=== PATIENT | female | born 1980 | race Caucasian/White ===

== ENCOUNTER 2016-11-06 21:22 | Inpatient (IN) | payer MEDICAID, OTHER ==
[~2016-11-06] VITALS: Ht 157.5 cm; Wt 88.5 kg
[~2016-11-06 21:22] MED LIST: ALBU1AER INH; DICY1TAB26 PO; ZOFR4TAB3 SL
[2016-11-06 21:29] VITALS: BP 125/82; PULSE 101; RESP 18; TEMP 97.8; O2SAT 96
--- NOTE | 2016-11-06 21:47 | PD ---
HPI Chief Complaint: Dizziness Time Seen by Provider: 21:34 Travel History International Travel<30 days: No Contact w/Intl Traveler<30days: No Traveled to known affect area: No History of Present Illness HPI This 36-year-old female says she was driving Home from Daycare Today When She Had a Episode Where She Farley She Might Pass out. She Says Everything Went Blank for a Moment. She Did Not Actually Pass out. After That She Developed a Left-Sided Headache. She's Had Some Paresthesias in the Right Arm and Right Leg. She Feels a Bit Short of Breath Says She Feels like She Can't Take. She Does Have a History of Asthma and Seasonal Allergies She Has a History of Migraine Headaches. SHe Was on Topamax in the past but Is Not Taking It Now. She says that her mother had a stroke at the age of 50 PFSH Past Medical History Asthma: Yes Diminished Hearing: No Gastrointestinal Disorders: Yes (ULCER) ?: Not : 3 Para: 2 Ectopic : Yes Past Surgical History Gynecologic Surgery: Yes (LEEP) Oral Surgery: Yes (WISDOM TEETH) Social History Alcohol Use: Yes (SOCIALLY) Tobacco Use: Yes (08/02PP) Substance Use: No Allergies-Medications (Allergen,Severity, Reaction): Coded Allergies: Zithromax (Verified Allergy, Mild, hives, 11/06/16) Advil (Verified Allergy, Unknown, 11/06/16) Codeine (Verified Allergy, Unknown, 11/06/16) Uncoded Allergies: RED COATING ON ADVIL (Allergy, Severe, 09/25/10) Reported Meds & Prescriptions Reported Meds & Active Scripts Active Reported Proair Hfa 8.5 GM Inh (Albuterol Sulfate) 90 Mcg/Act Aer 2 Puff INH Q4-6H PRN 108 mcg/actuation Review of Systems General / Constitutional: No: Fever, Chills Eyes: No: Diploplia, Blurred Vision HENT: Positive: Headaches, No: Vertigo Cardiovascular: Positive: Chest Pain or Discomfort, No: Palpitations Respiratory: Positive: Cough, No: Shortness of Breath Gastrointestinal: No: Nausea, Vomiting Genitourinary: No: Urgency Musculoskeletal: No: Myalgias, Arthralgias Skin: No Rash, No Itching Neurologic: Positive: Weakness, Sensory Disturbance Hematologic/Lymphatic: No: Easy Bruising Physical Exam Narrative GENERAL: Well-developed female SKIN: Focused skin assessment warm/dry. HEAD: Atraumatic. Normocephalic. EYES: Pupils equal and round. No scleral icterus. No injection or drainage. ENT: No nasal bleeding or discharge. Mucous membranes pink and moist. NECK: Trachea midline. No JVD. CARDIOVASCULAR: Regular rate and rhythm. No murmur appreciated. RESPIRATORY: No accessory muscle use. Clear to auscultation. Breath sounds equal bilaterally. GASTROINTESTINAL: Abdomen soft, non-tender, nondistended. Hepatic and splenic margins not palpable. MUSCULOSKELETAL: No obvious deformities. No clubbing. No cyanosis. No edema. NEUROLOGICAL: Awake and alert. No obvious cranial nerve deficits. Motor grossly within normal limits. Normal speech. There is diminished sensation in an area of the right upper arm laterally and the right upper leg laterally PSYCHIATRIC: Appropriate mood and affect; insight and judgment normal. Data Data Last Documented VS Vital Signs Date Time Temp Pulse Resp B/P Pulse Ox O2 Delivery O2 Flow Rate FiO2 11/06/16 22:00 100 20 139/69 99 Room Air 11/06/16 21:29 97.8 Orders Electrocardiogram (11/06/16 21:42) Complete Blood Count With Diff (11/06/16 21:42) Basic Metabolic Panel (Bmp) (11/06/16 21:42) Chest, Pa & Lat (11/06/16 21:42) Ct Brain W/O Iv Contrast(Rout) (11/06/16 21:42) Aspirin (Aspirin) (11/06/16 22:15) Urinalysis - C+S If Indicated (11/06/16 22:25) Nih Stroke Scale - Nihss .On admission and discharge (11/06/16 22:58) Neuro Checks Q2HX12,Q4H (11/06/16 22:58) Ot Request For Service (11/06/16 22:58) Consult Pt Eval & Treat (11/06/16 22:58) Case Management Consult (11/06/16 ) Nursing Bedside Swallow Assess .ONCE (11/06/16 22:58) Scd Bilateral/Knee High JOY.QSHIFT (11/06/16 22:58) Diet Npo (11/07/16 Breakfast) Hemoglobin (Hgb) A1c (11/06/16 22:58) Lipid Profile (11/07/16 06:00) Resp Oxygen Anthony C Titrat 1-4 L (11/06/16 ) ^ Hold Medication (11/06/16 22:58) Consult Neurology (11/06/16 ) Sodium Chloride 0.9% Flush (Ns Flush) (11/07/16 09:00) Sodium Chloride 0.9% Flush (Ns Flush) (11/06/16 23:00) Bedside Glucose JOY.AC&HS (11/06/16 22:58) Consult Rehab Medicine (11/06/16 22:58) Hr Recruiter / Telemetry JOY.Q8H (11/06/16 22:58) Consult Stoke Navigator (11/06/16 ) Echo 2d Comp W/Dopp(Routine) (11/06/16 ) Mri Brain W/O Contrast (11/06/16 ) Admit Order (Ed Use Only) (11/06/16 22:59) Labs Laboratory Tests Test 11/06/16 11/06/16 21:45 22:30 White Blood Count 17.4 TH/MM3 Red Blood Count 4.48 MIL/MM3 Hemoglobin 13.2 GM/DL Hematocrit 38.6 % Mean Corpuscular Volume 86.3 FL Mean Corpuscular Hemoglobin 29.5 PG Mean Corpuscular Hemoglobin 34.2 % Concent Red Cell Distribution Width 11.9 % Platelet Count 362 TH/MM3 Mean Platelet Volume 8.1 FL Neutrophils (%) (Auto) 75.4 % Lymphocytes (%) (Auto) 14.8 % Monocytes (%) (Auto) 6.0 % Eosinophils (%) (Auto) 1.6 % Basophils (%) (Auto) 2.2 % Neutrophils # (Auto) 13.1 TH/MM3 Lymphocytes # (Auto) 2.6 TH/MM3 Monocytes # (Auto) 1.0 TH/MM3 Eosinophils # (Auto) 0.3 TH/MM3 Basophils # (Auto) 0.4 TH/MM3 CBC Comment DIFF FINAL Differential Comment Sodium Level 138 MEQ/L Potassium Level 4.0 MEQ/L Chloride Level 103 MEQ/L Carbon Dioxide Level 26.7 MEQ/L Anion Gap 8 MEQ/L Blood Urea Nitrogen 7 MG/DL Creatinine 0.85 MG/DL Estimat Glomerular Filtration 77 ML/MIN Rate Random Glucose 79 MG/DL Calcium Level 8.9 MG/DL Urine Color YELLOW Urine Turbidity CLEAR Urine pH 6.0 Urine Specific [place] 1.010 Urine Protein NEG mg/dL Urine Glucose (UA) NEG mg/dL Urine Ketones NEG mg/dL Urine Occult Blood NEG Urine Nitrite NEG Urine Bilirubin NEG Urine Leukocyte Esterase NEG Urine Squamous Epithelial 0-5 /hpf Cells Microscopic Urinalysis Comment CULT NOT INDICATED MDM Medical Decision Making Medical Screen Exam Complete: Yes Emergency Medical Condition: Yes Medical Record Reviewed: Yes Differential Diagnosis Differential includes complicated migraine, CVA, Narrative Course CT scan has been read as negative. Patient was given aspirin. The symptoms started at 4:30 and the patient is out of the range for thrombolytics and the deficit is only a sensory deficit. The symptoms have been persistent throughout her emergency department stay Diagnosis Primary Impression: Stroke Qualified Code: I63.9 - Cerebrovascular accident (CVA), unspecified mechanism Additional Impression: Complicated migraine Admitting Information Admitting Physician Requests: Observation Damion Kincaid MD Nov 06, 2016 21:47
[2016-11-06 21:59] LABS: AUTOMATED NEUTROPHIL # 13.1 TH/MM3 (1.8-7.7); BASOPHIL # 0.4 TH/MM3 (0-0.2); BASOPHIL % 2.2 % (0.0-2.0); EOSINOPHIL # 0.3 TH/MM3 (0-0.4); EOSINOPHIL % 1.6 % (0.0-4.0); HEMATOCRIT 38.6 % (35.0-46.0); LYMPH % 14.8 % (9.0-44.0); LYMPHOCYTE # 2.6 TH/MM3 (1.0-4.8); MEAN CELL VOLUME 86.3 FL (80.0-100.0); MEAN CORPUSCULAR HEMOGLOBIN 29.5 PG (27.0-34.0); MEAN CORPUSCULAR HGB CONC 34.2 % (32.0-36.0); NEUT % 75.4 % (16.0-70.0); PLATELET COUNT 362 TH/MM3 (150-450); RED BLOOD COUNT 4.48 MIL/MM3 (4.00-5.30); RED CELL DISTRIBUTION WIDTH 11.9 % (11.6-17.2); WHITE BLOOD COUNT 17.4 TH/MM3 (4.0-11.0)
[2016-11-06 22:00] VITALS: BP 139/69; PULSE 100; RESP 20; O2SAT 99
--- NOTE | 2016-11-06 22:07 | RADHPO ---
EXAM DATE/TIME: 11/06/2016 21:51 [facility] COMPARISON: No previous studies available for comparison. INDICATIONS : Patient complains of headache, dizziness and weakness. MEDICAL HISTORY : Asthma SURGICAL HISTORY : None. ENCOUNTER: Initial ACUITY: 1 day PAIN SCORE: 0/10 LOCATION: Bilateral chest FINDINGS: PA and lateral views of the chest demonstrate the lungs to be symmetrically aerated without evidence of mass, infiltrate or effusion. The cardiomediastinal contours are unremarkable. Osseous structure s are intact. CONCLUSION: No acute disease. aByron Estrada MD FACR on November 06, 2016 at 22:05 Board Certified Radiologist. This report was verified electronically.
--- NOTE | 2016-11-06 22:10 | RADHPO ---
EXAM DATE/TIME: 11/06/2016 21:52 [facility] COMPARISON: No previous studies available for comparison. INDICATIONS : Cephalgia. RADIATION DOSE: 64.35 CTDIvol (mGy) MEDICAL HISTORY : Asthma SURGICAL HISTORY : None. ENCOUNTER: Initial ACUITY: 1 day PAIN SCALE: 4/10 LOCATION: cranial TECHNIQUE: Multiple contiguous axial images were obtained of the head. Using automated exposure control and adj ustment of the mA and/or kV according to patient size, radiation dose was kept as low as reasonably a chievable to obtain optimal diagnostic quality images. FINDINGS: CEREBRUM: The ventricles are normal for age. No evidence of midline shift, mass lesion, hemorrhage or acute in farction. No extra-axial fluid collections are seen. POSTERIOR FOSSA: The cerebellum and brainstem are intact. The 4th ventricle is midline. The cerebellopontine angle i s unremarkable. Prominent cisterna magna is noted. EXTRACRANIAL: The visualized portion of the orbits is intact. SKULL: The calvaria is intact. No evidence of skull fracture. CONCLUSION: Negative for an acute process. Bayron Estrada MD FACR on November 06, 2016 at 22:08 Board Certified Radiologist. This report was verified electronically.
[2016-11-06 22:14] LABS: HEMO FLAGS DIFF FINAL
[2016-11-06] MEDS ORDERED: ASPIRIN 325 MG TAB PO ONE (22:15)
[2016-11-06 22:17] LABS: BICARBONATE 26.7 MEQ/L (21.0-32.0)
[2016-11-06] MEDS ORDERED: ALBUAER3 INH (22:44)
[2016-11-06 22:45] VITALS: BP 134/65; PULSE 90; RESP 18; O2SAT 98
[2016-11-06 22:48] LABS: BLOOD, URINE NEG (NEG); GLUCOSE,URINE NEG (NEG); KETONE, URINE NEG (NEG); NITRITE,URINE NEG (NEG)
[2016-11-06 22:53] LABS: URINE COLOR YELLOW (YELLW/STRAW)
[2016-11-06 22:57] LABS: COMMENT (UR) CULT NOT INDICATED; CULTURE IF INDICATED CULT NOT INDICATED; SQUAMOUS EPITHELIAL CELL URINE 0-5 /hpf (0-5)
[2016-11-06] MEDS ORDERED: SODIUM CHLORIDE 0.9% FLUSH 10 ML FLUSH IV FLUSH PRN (23:00)
[2016-11-06 23:45] VITALS: BP 130/80; PULSE 88; RESP 18; O2SAT 97
[2016-11-06 23:49] VITALS: O2SAT 98
[2016-11-07] VITALS (9 sets, daily range): BP systolic 116–118; BP diastolic 67–77; PULSE 75–109; RESP 14; TEMP 97.8–98.3; O2SAT 96–98
--- NOTE | 2016-11-07 08:46 | RADHPO ---
EXAM DATE/TIME: 11/07/2016 07:46 [facility] COMPARISON: No previous studies available for comparison. INDICATIONS : Cerebrovascular accident. MEDICAL HISTORY : Pre syncope. Headache. Parasthesias right arm and leg. SURGICAL HISTORY : LEEP. ENCOUNTER: Initial ACUITY: 1 day PAIN SCORE: 9/10 LOCATION: Bilateral neck PEAK SYSTOLIC VELOCITIES (cm/sec): ICA/CCA RATIO: Right: 1.1 Left: 0.8 ICA: Right: 121 Left: 96 CCA: Right: 111 Left: 118 ECA: Right: 110 Left: 128 VERTEBRAL: Right: 72 antegrade Left: 65 antegrade Elevated flow velocities and ICA/CCA ratios have been found to correlate with increased degrees of vessel stenosis, calculated as percentage of diameter relative to a normal segment of distal ICA/CCA FINDINGS: RIGHT CAROTID: There is mild noncalcified plaque in the mid to distal common carotid artery. The waveforms are with in normal limits. LEFT CAROTID: No significant stenosis is visualized. The waveforms are within normal limits. VERTEBRAL ARTERIES: Antegrade flow is seen in both vertebral arteries. MISCELLANEOUS: None. CONCLUSION: 1. No significant atherosclerotic disease or stenosis is present within either internal carotid arter y. 2. There is antegrade flow within both vertebral arteries. Aquilino Hernandez MD on November 07, 2016 at 8:43 Board Certified Radiologist. This report was verified electronically.
[2016-11-07] MEDS: SODIUM CHLORIDE 0.9% FLUSH 10 ML FLUSH IV FLUSH SCH ×2 (09:00→10:49)
[2016-11-07] MEDS ORDERED: GADODIAMIDE PF 287 MG/ML 20 ML VIAL (for RAD MRI) IV ONE (09:46)
[2016-11-07 09:57] LABS: HDL CHOLESTEROL 41.8 MG/DL (40.0-60.0); LDL CHOLESTEROL 63 MG/DL (0-99)
--- NOTE | 2016-11-07 10:18 | RADHPO ---
EXAM DATE/TIME: 11/07/2016 09:21 [facility] COMPARISON: CT BRAIN W/O CONTRAST, November 06, 2016, 21:52. MRI BRAIN W & W/O CONTRAST, November 07, 2016, 9:21. INDICATIONS : Dizziness with cephalgia since this morning. MEDICAL HISTORY : None. SURGICAL HISTORY : Leep procedure ENCOUNTER: Initial ACUITY: 1 day PAIN SCORE: 0/10 LOCATION: cranial Please note a normal MRA of the brain does not entirely exclude the possibility of a small aneurysm, nor the possibility of distal intracranial vessel disease. TECHNIQUE: 3D time of flight MRA was performed. Source images, multiplanar STS MIP, and 3D volume MIP reconstru ctions were reviewed. FINDINGS: There is excellent visualization of the major intracranial arteries out to the second-order branch ve ssels. There is no evidence for aneurysm, vessel truncation or stenosis, and no evidence for vascula r malformation. CONCLUSION: Normal examination. Demetrio Huang MD on November 07, 2016 at 10:15 Board Certified Radiologist. This report was verified electronically.
--- NOTE | 2016-11-07 10:20 | RADHPO ---
EXAM DATE/TIME: 11/07/2016 09:21 [facility] COMPARISON: MRA BRAIN W/O CONTRAST, November 07, 2016, 9:21. US CAROTID ARTERIES, November 07, 2016, 7:46. CT BRAIN W /O CONTRAST, November 06, 2016, 21:52. INDICATIONS : Dizziness with cephalgia since this morning. CONTRAST: 18 cc Omniscan (gadodiamide) IV MEDICAL HISTORY : None. SURGICAL HISTORY : Leep procedure ENCOUNTER: Initial ACUITY: 1 day PAIN SCORE: 0/10 LOCATION: cranial TECHNIQUE: Multiplanar, multisequence MRI of the brain was performed both prior to and following the administrat ion of paramagnetic contrast. FINDINGS: CEREBRUM: The ventricles are normal for age. No evidence of midline shift, mass lesion, hemorrhage or acute in farction. No extraaxial fluid collections are seen. The pituitary gland and suprasellar cistern are normal in configuration. WHITE MATTER: No significant signal abnormalities are seen in the white matter. POSTERIOR FOSSA: The cerebellum and brainstem are intact. The 4th ventricle is midline. The cerebellopontine angle is unremarkable. The cerebellar tonsils are normal in position. There is a retrocerebellar cyst/promin ent CSF space to the right of midline measuring 3 x 2 cm in AP and transverse dimension. DIFFUSION IMAGING: No focal areas of restricted diffusion are seen. No evidence of acute infarction. EXTRACRANIAL: The visualized portions of the orbits and paranasal sinuses are unremarkable. POST-CONTRAST: No abnormal areas of parenchymal or dural enhancement. No evidence of blood-brain barrier breakdown. There is a venous angioma in the left basal ganglia. CONCLUSION: 1. Left basal ganglia venous angioma. 2. No acute findings. Demetrio Huang MD on November 07, 2016 at 10:16 Board Certified Radiologist. This report was verified electronically.
[2016-11-07] MEDS ORDERED: RESP: ALBUTEROL 2.5 MG/IPRATROPIUM 0.5 MG NEB (SCH) NEB ONE (10:45)
[2016-11-07] MEDS ORDERED: FLUTICASONE PROPIONATE 50 MCG/ACT 16 GM NASAL SPRAY NASAL SCH (10:46)
[2016-11-07] MEDS ORDERED: ALBUAER3 INH (10:58)
[2016-11-07] MEDS ORDERED: MONT10TA4 PO (10:58)
[2016-11-07] MEDS ORDERED: AMOX875T2 PO (10:58)
[2016-11-07] MEDS ORDERED: OXYM.05%I NASAL (10:58)
[2016-11-07] MEDS ORDERED: FLUT50SP NASAL (10:58)
[2016-11-07] MEDS ORDERED: TOPA25TA8 PO (11:00)
[2016-11-07] MEDS ORDERED: LORATADINE 10 MG TAB PO ONE (11:00)
[2016-11-07] MEDS ORDERED: MONTELUKAST SODIUM 10 MG TAB PO ONE (11:00)
[2016-11-07] MEDS ORDERED: AMOXICILLIN/CLAVULANATE K 875 MG TAB PO ONE (11:00)
--- NOTE | 2016-11-07 11:12 | HHI.HP ---
[facility] Service [facility] Primary Care Physician No Primary Care Physician Admission Diagnosis CVA VS COMPLICATED MIGRAINE Diagnoses: Chief Complaint: Headache. Travel History International Travel<30 Days: Yes Contact w/Intl Traveler <30 Da: Yes Name of Country Traveled to: [place] Traveled to Known Affected Are: No History of Present Illness Patient seen this morning. Reports feeling a popping sensation in her left nose yesterday at 4 PM while sitting at a stop light. She says she felt like she might pass out at the time. She has been experiencing a dull left frontal headache since that time which continues. She experienced right arm numbness and tingling, which has resolved. She denies any focal weakness. Denies any dizziness, blurry vision, nausea, vomiting. He is worried because her mother has a history of brain bleed at age 50. Patient does report a cough productive of green sputum for the past month, which she feels is a sinus infection which she has not been getting over. Says it is likely brought on by seasonal allergies. She takes Flonase as needed, but has not been taking recently. She has a history of asthma, however not been using her inhaler. She does feel like it has been a little bit more difficult to breathe over the past month. Patient requests to go home. She says she is here to make sure there is nothing immediately life-threatening. Review of Systems Performed and negative except for history of present illness and past medical history. Past Family Social History Past Medical History Migraines. Patient previously on Topamax in the past. Was discontinued History of allergic rhinitis. History of asthma. Does not use inhaler much anymore. Past Surgical History LEEP procedure This him teach removal Reported Medications Patient says she takes an albuterol inhaler as needed. Denies any other medications. Allergies: Coded Allergies: Zithromax (Verified Allergy, Mild, hives, 11/06/16) Advil (Verified Allergy, Unknown, 11/06/16) Codeine (Verified Allergy, Unknown, 11/06/16) Uncoded Allergies: RED COATING ON ADVIL (Allergy, Severe, 09/25/10) Family History Mother with brain stem bleed at age 50. Father healthy age 77. Social History Patient smokes when she drinks. She drinks twice a month on average. Denies any illicit drugs. She got in July. Physical Exam Vital Signs Vital Signs Date Time Temp Pulse Resp B/P Pulse Ox O2 Delivery O2 Flow Rate FiO2 11/07/16 09:16 97.8 79 14 118/77 96 11/07/16 06:00 98 11/07/16 05:00 109 11/07/16 04:00 94 11/07/16 03:00 90 11/07/16 02:00 88 11/07/16 01:00 75 11/07/16 00:41 98.3 75 18 116/67 97 11/06/16 23:49 98 21 11/06/16 23:45 88 18 130/80 97 Room Air 11/06/16 22:45 90 18 134/65 98 Room Air 11/06/16 22:00 100 20 139/69 99 Room Air 11/06/16 21:45 20 98 Room Air 11/06/16 21:29 97.8 101 18 125/82 96 Physical Exam GENERAL: This is a well-nourished, well-developed patient, in no apparent distress. SKIN: No rashes, ecchymoses or lesions. Cool and dry. HEAD: Atraumatic. Normocephalic. No temporal or scalp tenderness. EYES: Pupils equal round and reactive. Extraocular motions intact. No scleral icterus. No injection or drainage. ENT: Maxillary - tenderness. Throat without erythema, tonsillar hypertrophy or exudate. Uvula midline. Airway patent. NECK: Trachea midline. No JVD or lymphadenopathy. Supple, nontender, no meningeal signs. CARDIOVASCULAR: Regular rate and rhythm without murmurs, gallops, or rubs. RESPIRATORY: Clear to auscultation. Breath sounds equal bilaterally. No wheezes , rales, or rhonchi. GASTROINTESTINAL: Abdomen soft, non-tender, nondistended. No hepato-splenomegaly , or palpable masses. No guarding. MUSCULOSKELETAL: Extremities without clubbing, cyanosis, or edema. No joint tenderness, effusion, or edema noted. No calf tenderness. Negative Homans sign bilaterally. NEUROLOGICAL: Awake and alert. Cranial nerves II through XII intact. Motor and sensory grossly within normal limits. Five out of 5 muscle strength in all muscle groups. Normal speech. Laboratory Laboratory Tests Test 11/06/16 11/06/16 11/07/16 21:45 22:30 05:40 White Blood Count 17.4 Red Blood Count 4.48 Hemoglobin 13.2 Hematocrit 38.6 Mean Corpuscular Volume 86.3 Mean Corpuscular Hemoglobin 29.5 Mean Corpuscular Hemoglobin 34.2 Concent Red Cell Distribution Width 11.9 Platelet Count 362 Mean Platelet Volume 8.1 Neutrophils (%) (Auto) 75.4 Lymphocytes (%) (Auto) 14.8 Monocytes (%) (Auto) 6.0 Eosinophils (%) (Auto) 1.6 Basophils (%) (Auto) 2.2 Neutrophils # (Auto) 13.1 Lymphocytes # (Auto) 2.6 Monocytes # (Auto) 1.0 Eosinophils # (Auto) 0.3 Basophils # (Auto) 0.4 CBC Comment DIFF FINAL Differential Comment Sodium Level 138 Potassium Level 4.0 Chloride Level 103 Carbon Dioxide Level 26.7 Anion Gap 8 Blood Urea Nitrogen 7 Creatinine 0.85 Estimat Glomerular Filtration 77 Rate Random Glucose 79 Calcium Level 8.9 Urine Color YELLOW Urine Turbidity CLEAR Urine pH 6.0 Urine Specific [place] 1.010 Urine Protein NEG Urine Glucose (UA) NEG Urine Ketones NEG Urine Occult Blood NEG Urine Nitrite NEG Urine Bilirubin NEG Urine Leukocyte Esterase NEG Urine Squamous Epithelial 0-5 Cells Microscopic Urinalysis Comment CULT NOT INDICATED Erythrocyte Sedimentation Rate 12 Triglycerides Level 167 Cholesterol Level 138 LDL Cholesterol 63 HDL Cholesterol 41.8 Cholesterol/HDL Ratio 3.30 Vitamin B12 Level 445 Folate 14.7 Thyroid Stimulating Hormone 1.840 3rd Gen Result Diagram: 11/06/16214411/06/162144 Imaging Last Impressions Head Magnetic Resonance Angiography 11/07/16 0000 Signed Impressions: Service Date/Time: Monday, November 07, 2016 09:21 - CONCLUSION: Normal examination. Demetrio Huang MD Carotid Artery Ultrasound 11/07/16 0000 Signed Impressions: Service Date/Time: Monday, November 07, 2016 07:46 - CONCLUSION: 1. No significant atherosclerotic disease or stenosis is present within either internal carotid artery. 2. There is antegrade flow within both vertebral arteries. Aquilino Hernandez MD Brain MRI 11/07/16 0000 Signed Impressions: Service Date/Time: Monday, November 07, 2016 09:21 - CONCLUSION: 1. Left basal ganglia venous angioma. 2. No acute findings. Demetrio Huang MD Head CT 11/06/162141 Signed Impressions: Service Date/Time: Sunday, November 06, 2016 21:52 - CONCLUSION: Negative for an acute process. Bayron Estrada MD FACR Chest X-Ray 11/06/162141 Signed Impressions: Service Date/Time: Sunday, November 06, 2016 21:51 - CONCLUSION: No acute disease. Bayron Estrada MD FACR Assessment and Plan Assessment and Plan //Sinusitis. -Left turbinate swelling seen on MRI. Symptoms Have been going on for month. -Maxillary sinus tenderness on exam. -We'll start on antibiotics with Augmentin. Singulair. Flonase. Short course of afrin days. //asthma exacerbation. Mild.. Chest x-ray negative. This appears to be exacerbated by recent respiratory infection. We'll treat infection as above. Patient will use albuterol twice daily for the next week, then take as needed. Follow-up with primary care. //Suspected complex migraine. -Start on Topamax as per neurology. Follow-up with neurology as outpatient. Discussed with neurology. Appreciate assistance. //Incidental finding of likely chronic angioma on MRI. Follow-up with neurology as outpatient. //Tobacco abuse. Recommend that patient stop smoking altogether. Exacerbating her cough she essentially gets a quitting cough in between episodes of smoking. She agrees to do so. Follow-up with PCP. //Prophylaxis. Ambulatory. Code Status Full code Discussed Condition With Patient, nurse, neurology md. Physician Certification 2 Midnight Certification Type: Admission for Inpatient Services Order for Inpatient Services The services are ordered in accordance with Medicare regulations or non- Medicare payer requirements, as applicable. In the case of services not specified as inpatient-only, they are appropriately provided as inpatient services in accordance with the 2-midnight benchmark. Estimated LOS (days): 2 days is the estimated time the patient will need to remain in the hospital, assuming treatment plan goals are met and no additional complications. This is as estimated at the time of admission Post-Hospital Plan: Home Chuck Ruffin MD Nov 07, 2016 11:12
--- NOTE | 2016-11-07 11:33 | OTSOAPIP ---
1ST ATTEMPT PATIENT IN TESTING FOR BRAIN MRI- RESULTS NEGATIVE FOR NEUROLOGIC EVENT 2ND ATTEMPT PATIENT WITH NEUROLOGIST 3RD ATTEMPT 11 AM NURSING REPORTS NEUROLOGIST DISCHARGING NO DEFICITS. FACE TO FACE WITH PATIENT AND SHE IS IN AGREEMENT. WILL DISCHARGE ORDER. Therapist: Aster Pickens OTR/L Signature on file
--- NOTE | 2016-11-07 11:38 | EKG ---
Date Performed: 11/06/2016 Time Performed: 22:20:02 PTAGE: 36 years EKG: Sinus rhythm . rSr'(V1) - probable normal variant Inferior T wave changes are nonspecific Borderline ECG NO PREVIOUS TRACING DOCTOR: Jam Patel Interpretating Date/Time 11/07/2016 11:34:59
--- NOTE | 2016-11-07 11:45 | MB ---
cc: BHARGAV AMBROCIO M.D. DATE OF CONSULTATION 11/07/2016 REASON FOR CONSULTATION This 36-year-old is seen in neurological consultation. She came to the hospital yesterday when she was driving and had sudden onset of symptoms. She has a history of migraine headache and she was concerned because she all of a sudden "had vision blackout". Everything seemed to be dark. 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 She did not lose consciousness. She describes that there were some spots coming from the peripheral vision laterally on both sides to the central vision. She went home and she developed a terrific headache. At the same time he had right-sided tingling and recurred on a few occasions. Later on when the headache subsided, the paresthesias also subsided. Today she has a left-sided headache which is different from the headache yesterday. The headache is now rather mild. She has had a number of studies including MRI brain, MRA head, carotid ultrasound. The studies showed left sided sinus disease, some venous angioma and the carotid ultrasound was unremarkable. The MRA head was unremarkable. The patient was to be admitted to a hospitalist. 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 NEUROLOGICAL EXAMINATION Her neurologic exam is entirely normal. She is in no distress. Neck is supple. Ocular movement and visual hamlin full. Disks show normal findings. Speech and language normal. She has normal strength throughout on the bedside exam. She has been ambulatory without any problem. Reflexes were 1+ throughout. ASSESSMENT 1. Probable migraine headaches, left-sided sinus disease. 2. History of migraines. 3. Small venous angioma incidental. 4. Apparent family history of intracranial bleed. I think her symptomatology is benign. As outpatient an outpatient I would like to probably run an MRA of the neck to look into with the vertebrobasilar circulation in more detail. She is very anxious to go home and I agree with her being discharged. PLAN I would like to put her back on topiramate starting with 25 mg twice a day. In the past she was treated with topiramate and it was very effective for her migraine headaches and the medication was stopped because of her apparently having some low blood pressure when she moved to [place] from [place]. She he is advised to see me in the office in a couple of weeks. Thank you for asking us to assist in her care. MD FIONA Humphrey/SSB /11:03 AM /11:20 AM
--- NOTE | 2016-11-07 13:48 | EC ---
Study Study Date:11/07/2016 STUDY CONCLUSIONS SUMMARY - Left ventricle: The cavity size was normal. Wall thickness was normal. Systolic function was normal. The estimated ejection fraction was in the range of 55% to 60%. Wall motion was normal; there were no regional wall motion abnormalities. - Aortic valve: Valve area: 1.75cm^2(VTI). Valve area: 1.6cm^2 (Vmax). If LV function is below 40, please consider prescribing an ACEI or ARB or document rationale for non-use. PROCEDURE DATA STUDY STATUS: Elective. Procedure: Transthoracic echocardiography. Image quality was excellent. Scanning was performed from the parasternal, apical, and subcostal acoustic windows. Study completion: The patient tolerated the procedure well. Transthoracic echocardiography. M-mode, complete 2D, complete spectral Doppler, and color Doppler. Height: Height: 62in. Weight: Weight: 194.6lb. Body mass index: BMI: 35.7kg/m^2. Body surface area: BSA: 1.89m^2. Patient status: Inpatient. CARDIAC ANATOMY LEFT VENTRICLE: The cavity size was normal. Wall thickness was normal. Systolic function was normal. The estimated ejection fraction was in the range of 55% to 60%. Wall motion was normal; there were no regional wall motion abnormalities. AORTIC VALVE: Trileaflet; normal thickness leaflets. Doppler: Transvalvular velocity was within the normal range. There was no stenosis. No regurgitation. Valve area: 1.75cm^2(VTI). Indexed valve area: 0.93cm^2/m^2 (VTI). Valve area: 1.6cm^2 (Vmax). Indexed valve area: 0.85cm^2/m^2 (Vmax). Mean gradient: 5mm Hg (S). AORTA: Aortic root: The aortic root was normal in size. MITRAL VALVE: Structurally normal valve. Doppler: Transvalvular velocity was within the normal range. There was no evidence for stenosis. Trace regurgitation. LEFT ATRIUM: The atrium was normal in size. RIGHT VENTRICLE: The cavity size was normal. Wall thickness was normal. PULMONIC VALVE: Doppler: Transvalvular velocity was within the normal range. There was no evidence for stenosis. No regurgitation. TRICUSPID VALVE: Structurally normal valve. Doppler: Transvalvular velocity was within the normal range. Trace regurgitation. PULMONARY ARTERY: The main pulmonary artery was normal-sized. Systolic pressure was within the normal range. RIGHT ATRIUM: The atrium was normal in size. PERICARDIUM: There was no pericardial effusion. SYSTEMIC VEINS: Inferior vena cava: The vessel was normal in size. Patient weight: 194.6lb _Ejection fraction:_ 65-75% _Fractional shortening:_ 32% up to 5Kg 5-11.5Kg 11.6-22.9Kg 23-45Kg 45-57Kg Aortic Root 7-13 <17 13-22 17-27 17-27 LA diam 6-13 <23 24-38 33-47 37-40 RVID 10-17 7-15 7-15 7-18 8-17 LVIDd 12-22 <32 24-38 33-47 37-40 LVPW 2-4 3-6 5-7 6-8 7-8 IVS 2-4 3-6 5-7 6-8 7-8 BASIC MEASUREMENTS ADULT NORMAL Left ventricle LV internal dimension, ED, chordal *52.9 mm 43-52 level, PLAX LV internal dimension, ES, chordal *39.6 mm 23-38 level, PLAX Fractional shortening, chordal level, *25 % >29 PLAX LV posterior wall thickness, ED 6.77 mm IVS/LVPW ratio, ED 1.12 <1.3 Ventricular septum Septal thickness, ED 7.6 mm Aortic valve Leaflet separation 20 mm 15-26 Aorta Root diameter, ED 29 mm Left atrium Anterior-posterior dimension 30 mm Anterior-posterior dimension index 1.59 cm/m^2 <2.2 BASIC MEASUREMENTS ADULT NORMAL Aortic valve Leaflet separation 20 mm 15-26 DOPPLER MEASUREMENTS ADULT NORMAL Aortic valve Peak velocity, S 156 cm/s Mean velocity, S 110 cm/s VTI, S 26.1 cm Mean gradient, S 5 mm Hg Valve area, VTI 1.75 cm^2 Valve area index, VTI 0.93 cm^2/m^2 Valve area, Vmax 1.6 cm^2 Valve area index, Vmax 0.85 cm^2/m^2 Mitral valve Peak E-wave velocity 68.6 cm/s Peak A-wave velocity 82.4 cm/s Deceleration time *130 ms 150-230 Peak E/A ratio 0.8 Pulmonic valve Peak velocity, S 60.2 cm/s LEGEND: Mean values are shown as u=mean value. Asterisk (*) jones values outside specified normal range. Prepared and signed by Bryan Cloud [id number]
[2016-11-07 16:47] LABS: HEMOGLOBIN A1a 1.1 %; HEMOGLOBIN A1b 1.6 %; HEMOGLOBIN Ao 85.7 %; HEMOGLOBIN LA1C 1.8 %; HEMOGLOBIN P3 3.5 %
[2016-11-07] MEDS ORDERED: OXYMETAZOLINE HCL 0.05% 15 ML NASAL SPRAY NASAL SCH (21:00)
[2016-11-07] MEDS ORDERED: AMOXICILLIN/CLAVULANATE K 875 MG TAB PO SCH (21:00)
[2016-11-08] MEDS ORDERED: MONTELUKAST SODIUM 10 MG TAB PO SCH (21:00)
== END 2016-11-07 11:55 | disposition home or self-care (01) | DRG 102 ==
LOC: PHED 21:22 → PHEDA 23:03 → PH3A 11-07 00:33
PROVIDERS: ADMIT Internal Medicine; ATTEND Internal Medicine
DX: G43.109 Migraine with aura, not intractable, without status migrainosus (principal); Q28.3 Other malformations of cerebral vessels; J45.21 Mild intermittent asthma with (acute) exacerbation; J32.0 Chronic maxillary sinusitis; J30.9 Allergic rhinitis, unspecified; Z82.3 Family history of stroke; F17.200 Nicotine dependence, unspecified, uncomplicated
CPT/HCPCS: 70450; 70544; 70553; 71020; 80048; 80061; 81001; 82607; 82746; 82948; 83036; 84443; 85025; 85652; 93005; 93306; 93880; 94664; A9579

== ENCOUNTER 2017-10-05 13:28 | Emergency (ER) | payer MEDICAID ==
[~2017-10-05] VITALS: Ht 160 cm; Wt 83.0 kg
[~2017-10-05 13:28] MED LIST changes: -ALBU1AER INH; +ALBUAER3 INH; +AMOX875T2 PO; -DICY1TAB26 PO; +FLUT50SP NASAL; +MONT10TA4 PO; +OXYM.05%I NASAL; +TOPI25 PO; -ZOFR4TAB3 SL
[2017-10-05 13:48] VITALS: BP 134/94; PULSE 91; RESP 18; TEMP 98.3; O2SAT 99
[2017-10-05 14:23] LABS: AUTOMATED NEUTROPHIL # 10.4 TH/MM3 (1.8-7.7); BASOPHIL # 0.1 TH/MM3 (0-0.2); BASOPHIL % 0.4 % (0.0-2.0); EOSINOPHIL # 0.2 TH/MM3 (0-0.4); EOSINOPHIL % 1.2 % (0.0-4.0); HEMATOCRIT 38.5 % (35.0-46.0); HEMOGLOBIN 13.1 GM/DL (11.6-15.3); LYMPH % 16.8 % (9.0-44.0); LYMPHOCYTE # 2.3 TH/MM3 (1.0-4.8); MEAN CELL VOLUME 88.6 FL (80.0-100.0); MEAN CORPUSCULAR HEMOGLOBIN 30.1 PG (27.0-34.0); MEAN CORPUSCULAR HGB CONC 33.9 % (32.0-36.0); MEAN PLATELET VOLUME 7.4 FL (7.0-11.0); MONO % 5.7 % (0.0-8.0); MONOCYTE # 0.8 TH/MM3 (0-0.9); NEUT % 75.9 % (16.0-70.0); PLATELET COUNT 384 TH/MM3 (150-450); RED BLOOD COUNT 4.34 MIL/MM3 (4.00-5.30); RED CELL DISTRIBUTION WIDTH 13.2 % (11.6-17.2); WHITE BLOOD COUNT 13.7 TH/MM3 (4.0-11.0)
[2017-10-05 14:42] LABS: BICARBONATE 28.8 MEQ/L (21.0-32.0); BLOOD UREA NITROGEN 6 MG/DL (7-18); CALCIUM 8.6 MG/DL (8.5-10.1); CHLORIDE 106 MEQ/L (98-107); CREATININE 0.76 MG/DL (0.50-1.00); GLOMERULAR FILTRATION RATE 87 ML/MIN (>89); GLUCOSE,RANDOM 94 MG/DL (74-106); SODIUM (NA) 140 MEQ/L (136-145)
[2017-10-05 14:46] LABS: TROPONIN I LESS THAN 0.02 NG/ML (0.02-0.05)
[2017-10-05] MEDS ORDERED: HUMIBIDDM PO (15:53)
[2017-10-05] MEDS ORDERED: LEVA500T33 PO (15:53)
[2017-10-05] MEDS ORDERED: ALBUAER3 INH (16:05)
--- NOTE | 2017-10-06 23:39 | EKG ---
Date Performed: 10/05/2017 Time Performed: 14:03:51 PTAGE: 37 years EKG: Sinus rhythm INCOMPLETE RIGHT BUNDLE BRANCH BLOCK BORDERLINE ECG PREVIOUS TRACING : 11/06/2016 22.20 Since the prior tracing, there has been no significant heredia DOCTOR: Alexx Adame Interpretating Date/Time 10/06/2017 23:37:43
== END 2017-10-05 19:27 | disposition left against medical advice (07) ==
LOC: NED 13:28
DX: R07.9 Chest pain, unspecified (principal)
CPT/HCPCS: 80048; 82550; 84484; 85025; 93005; 99281

== ENCOUNTER 2017-10-05 15:00 | Emergency (ER) | payer MEDICAID ==
[~2017-10-05] VITALS: Ht 157.5 cm; Wt 89.8 kg
[2017-10-05 15:05] VITALS: BP 143/74; PULSE 83; RESP 16; TEMP 97.9; O2SAT 99
--- NOTE | 2017-10-05 15:33 | PD ---
HPI Chief Complaint: Respiratory Symptoms Time Seen by Provider: 15:15 Travel History International Travel<30 days: No Contact w/Intl Traveler<30days: No Traveled to known affect area: No History of Present Illness HPI This is a 37-year-old female who presented to the ER complaining of she has been a comes and goes for the last 2 weeks but got worse recently. Pain is 3 out of 10, midsternal, worse when she takes a deep breath, nothing makes it worse or better. Patient had 3 episodes of acute sinusitis that she received antibiotic for it in the last 2 months states that her cough never got better. Cough is productive of any sputum or blood. She denies any weight loss, no fever or chills, no night sweats no recent travel or sick contacts. PFSH Past Medical History Asthma: Yes Cancer: No Cardiovascular Problems: No Diminished Hearing: No Endocrine: No Gastrointestinal Disorders: Yes (ULCER) Genitourinary: No Immune Disorder: No Musculoskeletal: No Neurologic: Yes Psychiatric: No Reproductive: No Respiratory: No Migraines: Yes ?: Not LMP: 2 weeks : 3 Para: 2 Miscarriage: 1 Ectopic : Yes Past Surgical History Abdominal Surgery: No Cardiac Surgery: No Ear Surgery: No Endocrine Surgery: No Eye Surgery: No Genitourinary Surgery: No Gynecologic Surgery: No Oral Surgery: Yes (wisdom teeth removed) Thoracic Surgery: No Social History Alcohol Use: Yes (Occasionally) Tobacco Use: Yes ("1 cigarette every 3-4 weeks") Substance Use: No Allergies-Medications (Allergen,Severity, Reaction): Coded Allergies: azithromycin (Unverified Allergy, Mild, hives, 10/05/17) codeine (Unverified Allergy, Unknown, 10/05/17) ibuprofen (Unverified Allergy, Unknown, 10/05/17) Uncoded Allergies: RED COATING ON ADVIL (Allergy, Severe, 10/05/17) . Reported Meds & Prescriptions Reported Meds & Active Scripts Active Topamax (Topiramate) 25 Mg Tab 25 Mg PO BID Fluticasone Nasal [place] 50 Mcg/Act Naspr 2 [place] NASAL DAILY 30 Days Afrin Sinus (Oxymetazoline HCl) 0.05 % Spr 2 [place] NASAL Q12HR 3 Days Only take for 3 days. If taken for more than 3 days, can cause rebound sinus congestion and dependency. Montelukast (Montelukast Sodium) 10 Mg Tab 10 Mg PO HS 30 Days Amoxicillin-Clavulanate 875-125 mg Tab 875 Mg PO Q12HR 14 Days Proair Hfa 8.5 GM Inh (Albuterol Sulfate) 90 Mcg/Act Aer 2 Puff INH Q4-6H PRN 108 mcg/actuation Review of Systems Except as stated in HPI: all other systems reviewed are Neg General / Constitutional: No: Fever Eyes: No: Diploplia HENT: No: Headaches Cardiovascular: No: Chest Pain or Discomfort Physical Exam Narrative GENERAL: Alert and oriented 3 no acute distress SKIN: Focused skin assessment warm/dry. HEAD: Atraumatic. Normocephalic. EYES: Pupils equal and round. No scleral icterus. No injection or drainage. ENT: No nasal bleeding or discharge. Mucous membranes pink and moist. NECK: Trachea midline. No JVD. CARDIOVASCULAR: Regular rate and rhythm. No murmur appreciated. RESPIRATORY: No accessory muscle use. Clear to auscultation. Breath sounds equal bilaterally. GASTROINTESTINAL: Abdomen soft, non-tender, nondistended. Hepatic and splenic margins not palpable. MUSCULOSKELETAL: No obvious deformities. No clubbing. No cyanosis. No edema. NEUROLOGICAL: Awake and alert. No obvious cranial nerve deficits. Motor grossly within normal limits. Normal speech. PSYCHIATRIC: Appropriate mood and affect; insight and judgment normal. Data Data Last Documented VS Vital Signs Date Time Temp Pulse Resp B/P (MAP) Pulse Ox O2 Delivery O2 Flow Rate FiO2 10/05/17 15:05 97.9 83 16 143/74 (97) 99 Orders Orders Chest, Pa & Lat (10/05/17 ) Electrocardiogram (10/05/17 ) MDM Medical Decision Making Medical Screen Exam Complete: Yes Emergency Medical Condition: Yes Differential Diagnosis Bronchitis, pneumonia, pneumothorax. Narrative Course This is a 37-year-old female presents feeling of cough and chest pain for the last few weeks. Patient has history of bronchitis and sinusitis. She had labs done today at the main campus but she came here since the ER was less wait time. I believe that her symptoms could be attributed to a bronchitis and will give her a course of antibiotics and Mucinex and encourage her to will follow up with primary care physician. Diagnosis Primary Impression: Bronchitis Additional Instructions: Take medications as directed and return to the ER if symptoms change. Scripts Dextromethorphan-Guaifenesin (Mucinex DM) 30-600 Mg Tab 1 TAB PO BID Y for CHEST CONGESTION AND/OR COUGH for 7 Days, #14 TAB 0 Refills Prov: David Guerrero MD 10/05/17 Levofloxacin (Levaquin) 500 Mg Tablet 500 MG PO DAILY for Infection for 5 Days, #5 TAB 0 Refills Prov: David Guerrero MD 10/05/17 Disposition: 01 DISCHARGE HOME Condition: Stable David Guerrero MD Oct 05, 2017 15:33
--- NOTE | 2017-10-05 15:40 | RADRPT ---
EXAM DATE/TIME: 10/05/2017 15:27 [facility] COMPARISON: CHEST PA & LAT, November 06, 2016, 21:51. INDICATIONS : Shortness of breath. MEDICAL HISTORY : None. SURGICAL HISTORY : Leep procedure ENCOUNTER: Initial ACUITY: 2 days PAIN SCORE: 5/10 LOCATION: Bilateral chest FINDINGS: PA and lateral views of the chest demonstrate the lungs to be symmetrically aerated without evidence of mass, infiltrate or effusion. The cardiomediastinal contours are unremarkable. Osseous structure s are intact. CONCLUSION: No acute cardiopulmonary process. Brown Garcia MD on October 05, 2017 at 15:38 Board Certified Radiologist. This report was verified electronically.
[2017-10-05] MEDS ORDERED: LEVA500T33 PO (15:53)
[2017-10-05] MEDS ORDERED: HUMIBIDDM PO (15:53)
[2017-10-05] MEDS ORDERED: ALBUAER3 INH (16:05)
--- NOTE | 2017-10-07 00:22 | EKG ---
Date Performed: 10/05/2017 Time Performed: 15:36:57 PTAGE: 37 years EKG: Sinus rhythm INCOMPLETE RIGHT BUNDLE BRANCH BLOCK BORDERLINE ECG PREVIOUS TRACING : 10/05/2017 14.03 Since the prior tracing, there has been no significant heredia DOCTOR: Alexx Adame Interpretating Date/Time 10/07/2017 00:21:01
== END 2017-10-05 16:11 | disposition home or self-care (01) ==
LOC: PHED 15:00
DX: J40 Bronchitis, not specified as acute or chronic (principal); F17.210 Nicotine dependence, cigarettes, uncomplicated
CPT/HCPCS: 71046; 93005; 99284